=== PATIENT | female | born 1980 | race Caucasian/White ===

== ENCOUNTER 2025-03-26 11:20 | Emergency (ER) | payer OTHER ==
[~2025-03-26] VITALS: Ht 165.1 cm; Wt 73.0 kg
[2025-03-26 11:25] VITALS: BP 113/79; PULSE 84; RESP 18; TEMP 37.1; O2SAT 100
[2025-03-26] MEDS ORDERED: IBUPROFEN 800MG TABLET PO ONE (12:30)
[2025-03-26] MEDS: IBUPROFEN 400MG TABLET PO NR (12:30)
== END 2025-03-26 12:39 | disposition left against medical advice (07) ==
LOC: ER 11:20
DX: R59.1 Generalized enlarged lymph nodes (principal)
CPT/HCPCS: 99283